=== PATIENT | male | born 1945 | race Caucasian/White ===

== ENCOUNTER 2017-10-18 14:02 | Emergency (ER) | payer MEDICARE, OTHER ==
[~2017-10-18] VITALS: Ht 182.9 cm; Wt 77.1 kg
[~2017-10-18 14:02] MED LIST: AMLO5 PO; ANDROGEL; BACL10; Bactrim Ds Tab1 EACH PO; CIALIS PO; DIOVAN/HCT; GABA600 PO; KRILL OIL500 MG; LIDO5TP TOP; MODA200 PO; OXYC10ER PO; OXYC40ER PO; OXYC5 PO; Omeprazole20 M1; POTA10T; PRAV20 PO; ROSU5 PO; TIZA4 PO; UBID10; WARF2.5 PO; WARF5
[2017-10-18 15:36] LABS: BASOPHILS ABSOLUTE AUTO 0.04 K/mm3 (0.00-0.23); BASOPHILS PERCENT AUTO 1 % (0-2); EOSINOPHILS ABSOLUTE AUTO 0.19 K/mm3 (0.00-0.68); EOSINOPHILS PERCENT AUTO 3 % (0-6); Hematocrit 46.4 % (37.0-53.0); Hemoglobin 16.1 g/dL (13.5-17.5); IMMATURE GRAN ABSOLUTE AUTO 0.01 K/mm3 (0.00-0.10); IMMATURE GRAN PERCENT AUTO 0 % (0-1); LYMPHOCYTES ABSOLUTE AUTO 1.26 K/mm3 (0.84-5.20); LYMPHOCYTES PERCENT AUTO 21 % (21-46); MONOCYTES ABSOLUTE AUTO 0.37 K/mm3 (0.16-1.47); MONOCYTES PERCENT AUTO 6 % (4-13); Mean Corpuscular HGB Conc 34.7 g/dL (31.5-36.5); Mean Corpuscular Volume 92 fL (80-100); Mean Platelet Volume 10.3 fL (9.1-12.4); NEUTROPHILS ABSOLUTE AUTO 4.07 K/mm3 (1.96-9.15); NEUTROPHILS PERCENT AUTO 69 % (41-73); Platelet Count 168 K/mm3 (150-400); RDW Coefficient Variation 13.3 % (11.7-14.2); RDW Standard Deviation 44.2 fL (35.1-46.3); Red Blood Cell Count 5.03 M/mm3 (4.30-5.90); White Blood Cell Count 5.94 K/mm3 (4.00-11.30)
[2017-10-18 15:49] LABS: Alanine Aminotransfer (ALT/SGP 27 U/L (12-78); Albumin/Globulin Ratio 1.2 (0.8-1.8); Alk Phos 48 U/L (50-136); Anion Gap 6 mmol/L (6-16); Aspartate Aminotrans (AST/SGOT 24 U/L (12-37); Bilirubin, Total 0.4 mg/dL (0.1-1.0); Blood Urea Nitrogen 19 mg/dL (8-24); Bun/Creatinine Ratio 19.7 (12.0-20.0); CO2, Blood 29 mmol/L (21-32); Calcium, Blood 8.6 mg/dL (8.5-10.1); Chloride, Blood 105 mmol/L (98-108); Creatinine, Blood 0.96 mg/dL (0.60-1.20); Globulin, Blood 3.3 g/dL (2.2-4.0); Glomerular Filtration Rate >60 (60-); Glucose, Blood 169 mg/dL (70-99); Potassium, Blood 4.3 mmol/L (3.5-5.5); Sodium, Blood 140 mmol/L (136-145); Total Protein, Blood 7.3 g/dL (6.4-8.2); Troponin I <0.015 ng/mL (0.000-0.040)
[2017-10-18] MEDS ORDERED: ANDROGEL1.25 GM (17:31)
[2017-10-18] MEDS ORDERED: Diovan Hct 1601 EAC1 PO (17:49)
[2017-10-18 17:51] LABS: Source, Urine Clean Catch
[2017-10-18] MEDS ORDERED: Flovent Diskus50 MCG INH (17:51)
[2017-10-18] MEDS ORDERED: OXYC15ER PO (17:54)
[2017-10-18 18:01] LABS: Appearance, Urine Clear (Clear); Bilirubin, Urine Neg (Neg); Blood, Urine Neg (Neg); Color, Urine Yellow (P-Yellow); Glucose Qualitative, Urine Neg (Neg); Ketones, Urine Neg (Neg); Leukocyte Esterase, Urine Neg (Neg); Nitrite, Urine Neg (Neg); Protein, Urine Neg (Neg); Urobilinogen, Urine NORM (Normal)
[2017-10-18 18:15] LABS: International Normalized Ratio 2.89; Prothrombin Time Results 31.1 Sec (9.7-11.5)
== END 2017-10-18 20:35 | disposition home or self-care (01) ==
LOC: ER 14:02
PROVIDERS: Emergency Medicine
DX: S30.0XXA Contusion of lower back and pelvis, initial encounter (principal); I48.91 Unspecified atrial fibrillation; I10 Essential (primary) hypertension; Z79.899 Other long term (current) drug therapy; Z79.01 Long term (current) use of anticoagulants; Z87.891 Personal history of nicotine dependence; W20.8XXA Other cause of strike by thrown, projected or falling object, initial encounter
CPT/HCPCS: 36415; 71046; 74177; 80053; 81003; 84484; 85025; 85610; 93005; 93010; 99284; Q9967

== ENCOUNTER 2019-01-29 11:13 | Day surgery (SDC) | payer MEDICARE, OTHER ==
[~2019-01-29] VITALS: Ht 182.9 cm; Wt 81.2 kg
[~2019-01-29 11:13] MED LIST changes: +ANDROGEL1.25 GM; +Diovan Hct 1601 EAC1 PO; +Flovent Diskus50 MCG INH; +OXYC15ER PO
[2019-01-29 11:52] LABS: BASOPHILS ABSOLUTE AUTO 0.02 K/mm3 (0.00-0.23); BASOPHILS PERCENT AUTO 0 % (0-2); EOSINOPHILS ABSOLUTE AUTO 0.32 K/mm3 (0.00-0.68); EOSINOPHILS PERCENT AUTO 6 % (0-6); Hematocrit 51.6 % (37.0-53.0); Hemoglobin 17.3 g/dL (13.5-17.5); IMMATURE GRAN ABSOLUTE AUTO 0.02 K/mm3 (0.00-0.10); IMMATURE GRAN PERCENT AUTO 0 % (0-1); LYMPHOCYTES ABSOLUTE AUTO 0.96 K/mm3 (0.84-5.20); LYMPHOCYTES PERCENT AUTO 18 % (21-46); MONOCYTES ABSOLUTE AUTO 0.42 K/mm3 (0.16-1.47); MONOCYTES PERCENT AUTO 8 % (4-13); Mean Corpuscular HGB 32.2 pg (26.0-34.0); Mean Corpuscular HGB Conc 33.5 g/dL (31.5-36.5); Mean Corpuscular Volume 96 fL (80-100); NEUTROPHILS ABSOLUTE AUTO 3.76 K/mm3 (1.96-9.15); NEUTROPHILS PERCENT AUTO 68 % (41-73); Platelet Count 127 K/mm3 (150-400); RDW Coefficient Variation 12.4 % (11.7-14.2); RDW Standard Deviation 44.4 fL (35.1-46.3); Red Blood Cell Count 5.38 M/mm3 (4.30-5.90)
[2019-01-29 12:05] LABS: International Normalized Ratio 1.58; Prothrombin Time Results 16.1 Sec (9.7-11.5)
[2019-01-29 12:34] LABS: Anion Gap 4 mmol/L (6-16); Blood Urea Nitrogen 20 mg/dL (8-24); CO2, Blood 28 mmol/L (21-32); Calcium, Blood 9.1 mg/dL (8.5-10.1); Chloride, Blood 107 mmol/L (98-108); Glomerular Filtration Rate >60 (60-); Glucose, Blood 107 mg/dL (70-99); Potassium, Blood 4.3 mmol/L (3.5-5.5); Sodium, Blood 139 mmol/L (136-145)
--- NOTE | 2019-01-29 16:46 | NUR ---
ICE APPLIED TO THE LEFT CHEST WALL. DRESSING NOTED CLEAN, DRY AND INTACT. MEDICATED FOR PAIN WITH MOVEMENT, OXYCODONE. PT VERBALIZED UNDERSTANIDN OF KEEPING LEFT ARM IMMOBLIZED FOR NOW, AND KEEPING ELBOW BELOW THE LEVEL OF THE SHOULDER.
--- NOTE | 2019-01-29 19:35 | NUR ---
ASSUMED CARE PT RESTING IN ROOM COMFORTABLY AT THIS TIME. PER DAY SHIFT PT IS S/P PACEMAKER PLACED TODAY TO L CHEST WALL. PT IS INDEPENDENT IN ROOM, REPORTS ACHE TO SITE. ARM IN SLING W/ ICE PACK TO AREA. RESP EVEN UNLBAORED ON RA W/ SATS >92%. DENIES CP OR SOB. REPORTS PAIN TO SITE AND REQUESTING PAIN MEDS, WILL MEDICATE PER EMAR. CALL LIGHT IN REACH. PT CALLS APPRORIATELY.
--- NOTE | 2019-01-29 20:00 | NUR ---
SUMMARY Received the patient from the [facility] at 1530, post pacemaker insertion. The wound on the left upper chest wall is noted to be a white dry dressing covered with a clear tegederm, no evidence of any drainage, swelling, bruising or bleeding at the time of arrival. Vital signs were stable. About an hour and half later, the pt was up to the bathroom with a event staff assisting, and he c/o pain at the site, but he had been moving his arm around during the activity. Ice pack was applied and his arm secured in a sling, while he was sitting up in the chair, which he stated made it feel much better. At 6 pm noted that the surgical dressing had a scant amount of blood on it. Otherwise there was nothing remarkable about the site, nor nothing which had changed since previous assessments. The pt was encouraged not to use his arm, and to keep the ice pack on it for relief from pain. He is wearing the sling. He was also educated not to take off the surgical dressing, nor to get it wet for at least until he is seen for the wound check at the scheduled appointment. He verbalized understanding of this. Explained also to the patient that he is not taking his coumadin this evening due to the surgery done today, and that tomorrow at discharge he will have instructions from Dr. Hayden regarding when he should resume his coumadin.
--- NOTE | 2019-01-30 05:56 | NUR ---
SHIFT SUMMARY PT SLEEPING IN ROOM COMFORTABLY AT THIS TIME. NO ACUTE CHANGES IN STATUS OVERNIGHT. PACEMAKER SITE WNL. PT REPORTS SORENESS TO AREA. PT APPLYING ICE PACK REGULARLY. INDEPENDENT IN ROOM. DENIES NEEDS. RESP EVEN UNLBAORED ON RA W/ SATS >92%. CALL LIGHT IN REACH.
--- NOTE | 2019-01-30 09:11 | NUR ---
pt is awake a/ox3, in room, he is very anxious to get home. went over discharge instructions with him, they both verbalized understanding of instructions and f/u appt. iv removed intact, he has his arm sling in place, instructed to not raise arm, left via ambulation with in attendence.
== END 2019-01-30 09:01 | disposition home or self-care (01) ==
LOC: MHTC 11:13 → PCU 13:08 → MHTC 01-30 09:01
DX: I49.5 Sick sinus syndrome (principal); I48.91 Unspecified atrial fibrillation; Z79.899 Other long term (current) drug therapy
CPT/HCPCS: 33207; 36415; 71045; 71046; 80048; 85025; 85610; 99152; 99153; C1786; C1898; J0461; J0690; J1644; J2250; J3010; J7030; J7040

== ENCOUNTER → 2019-05-01 | Outpatient (CLI) | payer MEDICARE, OTHER ==
[2019-05-05 13:07] LABS: M-SPIKE, % Not Observed % (Not Observed); PROTEIN,TOTAL,URINE 5.7 mg/dL (Not Estab.)
== END | disposition home or self-care (01) ==
LOC: LAB 08:00 → LAB SHORT 08:00 → LAB FUT 04-28 13:05
PROVIDERS: Internal Medicine
DX: Z12.5 Encounter for screening for malignant neoplasm of prostate (principal)
CPT/HCPCS: 81050; 84166; 86335

== ENCOUNTER 2020-09-19 07:48 | Emergency (ER) | payer MEDICARE, OTHER ==
[~2020-09-19] VITALS: Ht 182.9 cm; Wt 86.2 kg
== END 2020-09-19 09:33 | disposition home or self-care (01) ==
LOC: ER 07:48
DX: R04.0 Epistaxis (principal); I48.91 Unspecified atrial fibrillation; I10 Essential (primary) hypertension; Z79.899 Other long term (current) drug therapy
CPT/HCPCS: 99283

== ENCOUNTER 2021-01-12 11:08 | Day surgery (SDC) | payer MEDICARE, OTHER ==
[~2021-01-12] VITALS: Ht 182.9 cm; Wt 85.4 kg
[~2021-01-12 11:08] MED LIST changes: +Cialis20 MG PO; +Coumadin5 MG PO; +Cymbalta20 MG PO; +Isosorbide Mono30 MG PO; +METF500C PO; +METO25ER PO; +METO50ER PO; +NITR.4SL SL; +ZOLP5 PO
--- NOTE | 2021-01-12 11:41 | NUR ---
01/12/21 1141 DARLENE BARRERA ONE ATTEMPT IN RH VALVE BY POLO SECOND ATTEMPT BY POLO RFA VALVE
== END 2021-01-12 13:25 | disposition home or self-care (01) ==
LOC: ORSCSDS 11:08
PROVIDERS: Internal Medicine Gastroenterology
PROC: 0DB98ZX Excision of Duodenum, Via Natural or Artificial Opening Endoscopic, Diagnostic (ICD-10-PCS; principal; 2021-01-12 12:30)
PROC: 0DB68ZX Excision of Stomach, Via Natural or Artificial Opening Endoscopic, Diagnostic (ICD-10-PCS; principal; 2021-01-12 12:30)
DX: R10.13 Epigastric pain (principal); R14.0 Abdominal distension (gaseous); Z95.0 Presence of cardiac pacemaker; I10 Essential (primary) hypertension; G47.30 Sleep apnea, unspecified; I48.0 Paroxysmal atrial fibrillation; Z87.891 Personal history of nicotine dependence; Z79.84 Long term (current) use of oral hypoglycemic drugs; Z79.01 Long term (current) use of anticoagulants; Z79.899 Other long term (current) drug therapy
CPT/HCPCS: 82947; 88305; 88342; J2704; J7120

== ENCOUNTER 2021-08-02 06:23 | Emergency (ER) | payer MEDICARE, OTHER ==
[~2021-08-02] VITALS: Ht 182.9 cm; Wt 81.7 kg
[2021-08-02 06:57] LABS: BASOPHILS ABSOLUTE AUTO 0.04 K/mm3 (0.00-0.23); BASOPHILS PERCENT AUTO 1 % (0-2); EOSINOPHILS ABSOLUTE AUTO 0.17 K/mm3 (0.00-0.68); EOSINOPHILS PERCENT AUTO 2 % (0-6); Hematocrit 54.8 % (37.0-53.0); Hemoglobin 17.8 g/dL (13.5-17.5); IMMATURE GRAN ABSOLUTE AUTO 0.03 K/mm3 (0.00-0.10); IMMATURE GRAN PERCENT AUTO 0 % (0-1); LYMPHOCYTES ABSOLUTE AUTO 1.47 K/mm3 (0.84-5.20); LYMPHOCYTES PERCENT AUTO 17 % (21-46); MONOCYTES ABSOLUTE AUTO 0.66 K/mm3 (0.16-1.47); MONOCYTES PERCENT AUTO 8 % (4-13); Mean Corpuscular HGB 31.4 pg (26.0-34.0); Mean Corpuscular HGB Conc 32.5 g/dL (31.5-36.5); Mean Corpuscular Volume 97 fL (80-100); Mean Platelet Volume 10.8 fL (9.1-12.4); NEUTROPHILS ABSOLUTE AUTO 6.39 K/mm3 (1.96-9.15); NEUTROPHILS PERCENT AUTO 73 % (41-73); Platelet Count 164 K/mm3 (150-400); RDW Coefficient Variation 13.1 % (11.7-14.2); RDW Standard Deviation 46.8 fL (35.1-46.3); Red Blood Cell Count 5.66 M/mm3 (4.30-5.90); White Blood Cell Count 8.76 K/mm3 (4.00-11.30)
[2021-08-02 07:07] LABS: International Normalized Ratio 3.24; Prothrombin Time Results 31.5 Sec (9.7-11.5)
[2021-08-02 07:10] LABS: Alanine Aminotransfer (ALT/SGP 33 U/L (12-78); Albumin, Blood 3.7 g/dL (3.4-5.0); Alk Phos 57 U/L (50-136); Anion Gap 2 mmol/L (6-16); Aspartate Aminotrans (AST/SGOT 40 U/L (12-37); Bilirubin, Total 0.7 mg/dL (0.1-1.0); Blood Urea Nitrogen 16 mg/dL (8-24); Bun/Creatinine Ratio 13.7 (12.0-20.0); CO2, Blood 31 mmol/L (21-32); Calcium, Blood 8.9 mg/dL (8.5-10.1); Chloride, Blood 105 mmol/L (98-108); Creatinine, Blood 1.17 mg/dL (0.60-1.20); Globulin, Blood 3.7 g/dL (2.2-4.0); Glomerular Filtration Rate >60 (60-); Glucose, Blood 160 mg/dL (70-99); Potassium, Blood 4.4 mmol/L (3.5-5.5); Sodium, Blood 138 mmol/L (136-145); Total Protein, Blood 7.4 g/dL (6.4-8.2)
[2021-08-02 08:02] LABS: Source, Urine Clean Catch
[2021-08-02 08:06] LABS: Appearance, Urine Clear (Clear); Bilirubin, Urine Neg (Neg); Blood, Urine Neg (Neg); Color, Urine Yellow (P-Yellow); Glucose Qualitative, Urine Neg (Neg); Ketones, Urine Neg (Neg); Leukocyte Esterase, Urine 1+ (Neg); Nitrite, Urine Neg (Neg); Protein, Urine 2+ (Neg); Specific Gravity, Urine 1.025 (1.003-1.022); Urobilinogen, Urine NORM (Normal)
[2021-08-02 08:15] LABS: Bacteria Rare /hpf; Red Blood Cells, Urine Not Seen /hpf (0-2); Squamous Epithelial Cells Rare /hpf (Few)
[2021-08-02] MEDS ORDERED: CYCL10 PO (11:05)
[2021-08-02] MEDS ORDERED: PRED20 PO (11:05)
== END 2021-08-02 11:30 | disposition home or self-care (01) ==
LOC: ER 06:23
PROVIDERS: Emergency Medicine
DX: K76.0 Fatty (change of) liver, not elsewhere classified (principal); G89.29 Other chronic pain; M54.50 Low back pain, unspecified; I10 Essential (primary) hypertension; I48.91 Unspecified atrial fibrillation; Z79.899 Other long term (current) drug therapy
CPT/HCPCS: 36415; 74176; 76705; 80053; 81001; 83690; 85025; 85610; 85730; 87077; 87086; 87186; 96374; 96375; 99284-25; A9270; J1170; J1885; J2270; J2405; J7030; J7512

== ENCOUNTER 2022-07-16 15:32 | Emergency (ER) | payer MEDICARE, OTHER ==
[~2022-07-16] VITALS: Ht 182.9 cm; Wt 79.4 kg
[~2022-07-16 15:32] MED LIST changes: +CYCL10 PO; +PRED20 PO
[2022-07-16 16:28] LABS: BASOPHILS ABSOLUTE AUTO 0.03 K/mm3 (0.00-0.23); BASOPHILS PERCENT AUTO 0 % (0-2); EOSINOPHILS ABSOLUTE AUTO 0.21 K/mm3 (0.00-0.68); EOSINOPHILS PERCENT AUTO 2 % (0-6); Hematocrit 40.8 % (37.0-53.0); Hemoglobin 13.4 g/dL (13.5-17.5); IMMATURE GRAN ABSOLUTE AUTO 0.04 K/mm3 (0.00-0.10); IMMATURE GRAN PERCENT AUTO 0 % (0-1); LYMPHOCYTES ABSOLUTE AUTO 0.76 K/mm3 (0.84-5.20); LYMPHOCYTES PERCENT AUTO 7 % (21-46); MONOCYTES ABSOLUTE AUTO 1.15 K/mm3 (0.16-1.47); MONOCYTES PERCENT AUTO 11 % (4-13); Mean Corpuscular HGB 31.2 pg (26.0-34.0); Mean Corpuscular HGB Conc 32.8 g/dL (31.5-36.5); Mean Corpuscular Volume 95 fL (80-100); Mean Platelet Volume 9.6 fL (9.1-12.4); NEUTROPHILS ABSOLUTE AUTO 8.16 K/mm3 (1.96-9.15); NEUTROPHILS PERCENT AUTO 79 % (41-73); Platelet Count 222 K/mm3 (150-400); RDW Coefficient Variation 13.2 % (11.7-14.2); RDW Standard Deviation 46.5 fL (35.1-46.3); White Blood Cell Count 10.35 K/mm3 (4.00-11.30)
[2022-07-16 16:34] LABS: Albumin/Globulin Ratio 0.8 (0.8-1.8); Bilirubin, Total 0.6 mg/dL (0.1-1.0); Bun/Creatinine Ratio 19.3 (12.0-20.0); Calcium, Blood 9.1 mg/dL (8.5-10.1); Creatinine, Blood 1.14 mg/dL (0.60-1.20); Globulin, Blood 3.9 g/dL (2.2-4.0); Potassium, Blood 4.8 mmol/L (3.5-5.5); Total Protein, Blood 6.9 g/dL (6.4-8.2)
[2022-07-16 19:25] LABS: International Normalized Ratio 2.3; Prothrombin Time Results 22.9 Sec (9.7-11.5)
== END 2022-07-16 22:29 | disposition home or self-care (01) ==
LOC: ER 15:32
PROVIDERS: Physician Assistant; Student in an Organized Health Care Education/Training Program
DX: H53.2 Diplopia (principal); I10 Essential (primary) hypertension; Z79.52 Long term (current) use of systemic steroids; Z79.899 Other long term (current) drug therapy; Z79.84 Long term (current) use of oral hypoglycemic drugs; Z87.891 Personal history of nicotine dependence
CPT/HCPCS: 36415; 70450; 70496; 70498; 80053; 85025; 85610; 93005; 93010; 99284-25; Q9967

== ENCOUNTER → 2023-02-22 | Outpatient (CLI) | payer MEDICARE, OTHER | END | disposition home or self-care (01) | LOC: LAB 09:31 → LAB SHORT 09:31 | DX: R31.9 Hematuria, unspecified (principal) | CPT/HCPCS: 87086 ==

== ENCOUNTER 2023-08-06 07:22 | Day surgery (SDC) | payer MEDICARE, OTHER ==
[~2023-08-06] VITALS: Ht 182.9 cm; Wt 81.1 kg
[2023-08-06] MEDS ORDERED: XARELTO20 MG (08:14)
[2023-08-06 09:59] VITALS: BP 125/66
== END 2023-08-06 09:55 | disposition home or self-care (01) ==
LOC: ORSCSDS 07:22
PROVIDERS: Specialist
PROC: 0DBP8ZX Excision of Rectum, Via Natural or Artificial Opening Endoscopic, Diagnostic (ICD-10-PCS; principal; 2023-08-06 08:45)
DX: K59.09 Other constipation (principal); K92.1 Melena; K62.1 Rectal polyp; K63.89 Other specified diseases of intestine; K57.30 Diverticulosis of large intestine without perforation or abscess without bleeding; E11.9 Type 2 diabetes mellitus without complications; Z86.010 Personal history of colon polyps; E78.5 Hyperlipidemia, unspecified; I10 Essential (primary) hypertension; I63.9 Cerebral infarction, unspecified; Z95.0 Presence of cardiac pacemaker; I48.91 Unspecified atrial fibrillation; Z87.891 Personal history of nicotine dependence; Z79.01 Long term (current) use of anticoagulants; Z79.84 Long term (current) use of oral hypoglycemic drugs; Z79.899 Other long term (current) drug therapy
CPT/HCPCS: 82947; 88305; J2704; J7120

== ENCOUNTER 2023-10-02 12:04 | Emergency (ER) | payer MEDICARE, OTHER ==
[~2023-10-02] VITALS: Ht 182.9 cm; Wt 81.7 kg
[~2023-10-02 12:04] MED LIST changes: -BENAZEPRIL-HCT1 EAC3 PO; -ESCI10 PO; -K-TAB ER20 ME1 PO; -LIDOCAINE1 EACH TOP; -Lasix40 MG PO; -OXYCONTIN15 MG PO; -PRAMIPEXOLE0.125 M1 PO; -XARELTO20 M1 PO
[2023-10-02 12:52] LABS: BASOPHILS ABSOLUTE AUTO 0.07 K/mm3 (0.00-0.23); BASOPHILS PERCENT AUTO 1 % (0-2); EOSINOPHILS ABSOLUTE AUTO 0.78 K/mm3 (0.00-0.68); EOSINOPHILS PERCENT AUTO 11 % (0-6); Hematocrit 38.6 % (37.0-53.0); Hemoglobin 12.5 g/dL (13.5-17.5); IMMATURE GRAN ABSOLUTE AUTO 0.02 K/mm3 (0.00-0.10); IMMATURE GRAN PERCENT AUTO 0 % (0-1); LYMPHOCYTES ABSOLUTE AUTO 0.64 K/mm3 (0.84-5.20); LYMPHOCYTES PERCENT AUTO 9 % (21-46); MONOCYTES ABSOLUTE AUTO 0.91 K/mm3 (0.16-1.47); MONOCYTES PERCENT AUTO 13 % (4-13); Mean Corpuscular HGB 28.8 pg (26.0-34.0); Mean Corpuscular HGB Conc 32.4 g/dL (31.5-36.5); Mean Corpuscular Volume 89 fL (80-100); NEUTROPHILS ABSOLUTE AUTO 4.69 K/mm3 (1.96-9.15); NEUTROPHILS PERCENT AUTO 66 % (41-73); Platelet Count 219 K/mm3 (150-400); RDW Coefficient Variation 14.5 % (11.7-14.2); RDW Standard Deviation 47.3 fL (35.1-46.3); Red Blood Cell Count 4.34 M/mm3 (4.30-5.90); White Blood Cell Count 7.11 K/mm3 (4.00-11.30)
[2023-10-02 13:08] LABS: Albumin, Blood 3.3 g/dL (3.4-5.0); Albumin/Globulin Ratio 0.9 (0.8-1.8); Bilirubin, Total 0.6 mg/dL (0.1-1.0); Bun/Creatinine Ratio 22.3 (12.0-20.0); Calcium, Blood 8.7 mg/dL (8.5-10.1); Creatinine, Blood 1.21 mg/dL (0.60-1.20); Globulin, Blood 3.6 g/dL (2.2-4.0); Potassium, Blood 4.3 mmol/L (3.5-5.5); Total Protein, Blood 6.9 g/dL (6.4-8.2)
[2023-10-02] MEDS ORDERED: BENAZEPRIL-HCT1 EAC3 PO (15:35)
[2023-10-02] MEDS ORDERED: OXYCONTIN15 MG PO (15:36)
[2023-10-02] MEDS ORDERED: LIDOCAINE1 EACH TOP (15:36)
[2023-10-02] MEDS ORDERED: PRAMIPEXOLE0.125 M1 PO (15:36)
[2023-10-02] MEDS ORDERED: OXYC5 PO (15:36)
[2023-10-02] MEDS ORDERED: ESCI10 PO (15:36)
[2023-10-02] MEDS ORDERED: Cialis20 MG PO (15:37)
[2023-10-02] MEDS ORDERED: XARELTO20 M1 PO (15:38)
[2023-10-02] MEDS ORDERED: Lasix40 MG PO (16:41)
[2023-10-02] MEDS ORDERED: K-TAB ER20 ME1 PO (16:42)
[2023-10-02 17:17] VITALS: BP 150/89
== END 2023-10-02 17:17 | disposition home or self-care (01) ==
LOC: ER 12:04
PROVIDERS: Student in an Organized Health Care Education/Training Program
DX: R60.0 Localized edema (principal); I48.91 Unspecified atrial fibrillation; I10 Essential (primary) hypertension; G89.29 Other chronic pain; I49.5 Sick sinus syndrome; Z95.0 Presence of cardiac pacemaker; Z88.8 Allergy status to other drugs, medicaments and biological substances; Z79.01 Long term (current) use of anticoagulants; Z79.899 Other long term (current) drug therapy; Z79.84 Long term (current) use of oral hypoglycemic drugs; Z79.890 Hormone replacement therapy
CPT/HCPCS: 71046; 80053; 83880; 84484; 85025; 85730; 86850; 86900; 86901; 93005; 93010; 96374; 99285-25; J1940

== ENCOUNTER → 2023-10-02 | Outpatient (CLI) | payer MEDICARE, OTHER ==
[~2023-10-02] MED LIST changes: +BENAZEPRIL-HCT1 EAC3 PO; +ESCI10 PO; +K-TAB ER20 ME1 PO; +LIDOCAINE1 EACH TOP; +Lasix40 MG PO; +OXYCONTIN15 MG PO; +PRAMIPEXOLE0.125 M1 PO; +XARELTO20 M1 PO; +XARELTO20 MG
[2023-10-06 17:45] LABS: PANCREATIC ELASTASE,FECAL 159 ug/g (>=100)
== END ==
LOC: LAB SHORT 09:00 → LAB 09:00
PROVIDERS: Physician Assistant Medical
DX: R10.13 Epigastric pain (principal)
CPT/HCPCS: 82653